=== PATIENT | male | born 1965 | race Caucasian/White ===

== ENCOUNTER 2024-03-06 05:40 | Emergency (ER) | payer OTHER ==
[2024-03-06 06:00] VITALS: TEMP 97.6
--- NOTE | 2024-03-06 06:30 | ERPHSYRPT ---
- History of Present Illness Time Seen by Provider: 03/06/24 06:23 Source: patient Exam Limitations: no limitations Patient Subjective Stated Complaint: spontaneous R nare nose bleed that started around 0430 while patient was getting ready for work, pt states he had 2 nose bleeds yesterday that stopped on their own, 1st nose bleed yesterday was after sneezing, 2nd nosebleed was also spontaneous Triage Nursing Assessment: pt ambulatory to bed by self, at bedside, pt alert and oriented x3, skin pwd, pt c/o R sided nose bleed that spontaneously bleeding around 0430 while patient was getting ready for work, pt denies any pain, pt denies bloodthinners, pt takes low dose aspirin daily, R nare bleeding steadily upon arrival Physician History: 58-year-old male presents to emergency department for evaluation of nosebleed. Patient states bleeding started yesterday. Patient states he sneezed and the right nare began to bleed. It spontaneously stopped. Bleeding reoccurred a second time yesterday. Patient states he started to bleed spontaneously without any obvious cause. That second bleed eventually stopped. Patient states he bled again from the right nare this morning as he was getting ready for work. No triggering factors. Patient denies a history of nosebleeds. No obvious easy bruising. No ecchymosis on the skin. He denies trauma. Patient is not on blood thinners. However he does take a baby aspirin. Patient otherwise feels well. He denies pain. No chest pain or shortness of breath. No nausea vomiting or diaphoresis. at bedside. They voiced no other complaints or concerns at this time. Portions of this note were created with voice recognition technology. There may be grammatical, spelling, punctuation or sound alike errors Timing/Duration: yesterday Severity: moderate Modifying Factors: Improves With: nothing Associated Symptoms: denies symptoms Allergies/Adverse Reactions: No Known Drug Allergies Allergy (Verified 03/06/24 05:51) Home Medications: Aspirin 81 gm Chew [Baby Aspirin 81 mg Chew] 1 tab PO DAILY 03/06/24 [History] Atorvastatin Calcium 1 tab PO DAILY 03/06/24 [History] Cholecalciferol (Vitamin D3) [Vitamin D3] 50 mcg PO DAILY 03/06/24 [History] Fenofibrate 160 mg PO DAILY 03/06/24 [History] Meloxicam 2 tab PO DAILY 03/06/24 [History] Multivitamin 1 tab PO DAILY 03/06/24 [History] Phenytoin Sodium Extended [Dilantin] 2 tab PO DAILY 03/06/24 [History] hydroCHLOROthiazide [Hydrochlorothiazide] 12.5 mg PO DAILY 03/06/24 [History] lisinopriL [Lisinopril] 1 tab PO DAILY 03/06/24 [History] Hx Tetanus, Diphtheria Vaccination/Date Given: No Hx Influenza Vaccination/Date Given: Yes Hx Pneumococcal Vaccination/Date Given: No Travel Risk - International Travel Have you traveled outside of the country in past 3 weeks: No - Emerging Infectious Disease Are you exhibiting symptoms associated with any current EIDs: No - Review of Systems Constitutional: No Symptoms, No Fever, No Chills Eyes: No Symptoms Ears, Nose, & Throat: No Symptoms Respiratory: No Symptoms, No Cough, No Dyspnea Cardiac: No Symptoms, No Chest Pain, No Edema, No Syncope Abdominal/Gastrointestinal: No Symptoms, No Abdominal Pain, No Nausea, No Vomiting, No Diarrhea Genitourinary Symptoms: No Symptoms, No Dysuria Musculoskeletal: No Symptoms, No Back Pain, No Neck Pain Skin: No Symptoms, No Rash Neurological: No Symptoms, No Dizziness, No Focal Weakness, No Sensory Changes Psychological: No Symptoms Endocrine: No Symptoms Hematologic/Lymphatic: No Symptoms Immunological/Allergic: No Symptoms All Other Systems: Reviewed and Negative - Past Medical History Pertinent Past Medical History: Yes Neurological History: Seizures ENT History: No Pertinent History Cardiac History: High Cholesterol, Hypertension Respiratory History: No Pertinent History Endocrine Medical History: No Pertinent History Musculoskeletal History: Fractures GI Medical History: No Pertinent History History: No Pertinent History Psycho-Social History: No Pertinent History Male Reproductive Disorders: No Pertinent History - Past Surgical History Past Surgical History: No Neuro Surgical History: No Pertinent History Cardiac: No Pertinent History Respiratory: No Pertinent History Gastrointestinal: No Pertinent History Genitourinary: No Pertinent History Musculoskeletal: No Pertinent History Male Surgical History: No Pertinent History - Social History Smoking Status: Never smoker Exposure to second hand smoke: No Drug Use: none - Social Determinants of Health Will the patient participate in the screening: Declined to provide - Nursing Vital Signs Nursing Vital Signs: Initial Vital Signs Temperature 97.6 F 03/06/24 05:51 Pulse Rate 111 H 03/06/24 05:51 Respiratory Rate 18 03/06/24 05:51 Blood Pressure 148/104 03/06/24 05:51 O2 Sat by Pulse Oximetry 96 03/06/24 05:51 Pain Scale Pain Intensity 0 - Physical Exam General Appearance: no apparent distress, alert Eye Exam: PERRL/EOMI, eyes nml inspection Ears, Nose, Throat Exam: normal ENT inspection, TMs normal, pharynx normal, moist mucous membranes Neck Exam: normal inspection, non-tender, supple, full range of motion Respiratory Exam: normal breath sounds, lungs clear, airway intact, No respiratory distress Cardiovascular Exam: regular rate/rhythm, normal heart sounds, normal peripheral pulses Gastrointestinal/Abdomen Exam: soft, normal bowel sounds, No tenderness, No mass Back Exam: normal inspection, normal range of motion, No CVA tenderness, No vertebral tenderness Extremity Exam: normal inspection, normal range of motion, pelvis stable Neurologic Exam: alert, oriented x 3, cooperative, normal mood/affect, nml cerebellar function, nml station & gait, sensation nml, No motor deficits Skin Exam: normal color, warm, dry, No rash Lymphatic Exam: No adenopathy SpO2 Interpretation: normal SpO2: 96 O2 Delivery: Room Air - Course Nursing assessment & vital signs reviewed: Yes Ordered Tests: Active Orders 24 hr Category Date Time Status IV Insertion STAT Care 03/06/24 06:33 Active CBC W DIFF Stat Lab 03/06/24 06:52 Completed CMP Stat Lab 03/06/24 06:52 Received PROTIME WITH INR Stat Lab 03/06/24 06:52 Received PTT Stat Lab 03/06/24 06:52 Received Medication Summary Generic Name Dose Route Start Last Admin Trade Name Freq PRN Reason Stop Dose Admin Sodium Chloride 1,000 mls @ 999 mls/hr 03/06/24 06:33 03/06/24 06:47 Sodium Chloride 0.9% 1000 Ml IV 03/06/24 07:33 999 mls/hr .[id number] STA Administration Discontinued Medications Generic Name Dose Route Start Last Admin Trade Name Freq PRN Reason Stop Dose Admin Sodium Chloride Confirm 03/06/24 06:45 Sodium Chloride 0.9% 1000 Ml Administered 03/06/24 06:46 Dose 1,000 mls @ ud .ROUTE .K-MED ONE Lab/Rad Data: Laboratory Result Diagrams 03/06/24 06:52 Laboratory Results 03/06/24 Range/Units 06:52 WBC 4.2 L (4.23-9.07) x10^3/uL RBC 4.09 L (4.63-6.08) x10^6/uL Hgb 12.2 L (13.7-17.5) g/dL Hct 36.1 L (40.1-51.0) % MCV 88.3 (79.0-92.2) fL MCH 29.8 (25.7-32.2) pg MCHC 33.8 (32.3-36.5) g/dL RDW 12.8 (11.6-14.4) % Plt Count 191 (163-337) x10^3/uL MPV 8.8 L (9.4-12.4) fL Gran % 67.5 (34.0-67.9) % Immature Gran % (Auto) 2.4 H (0.001-0.429) % Nucleat RBC Rel Count 0.0 (0.00-0.2) % Eos # (Auto) 0.15 (0.04-0.54) x10^3/uL Immature Gran # (Auto) 0.10 H (0.001-0.031) x10^3u/L Absolute Lymphs (auto) 0.69 L (1.32-3.57) x10^3/uL Absolute Monos (auto) 0.39 (0.30-0.82) x10^3/uL Absolute Nucleated RBC 0.00 (0.00-0.012) x10^3u/L Lymphocytes % 16.4 L (21.8-53.1) % Monocytes % 9.2 (5.3-12.2) % Eosinophils % 3.6 (0.8-7.0) % Basophils % 0.9 (0.2-1.2) % Absolute Granulocytes 2.85 (1.78-5.38) x10^3/uL Basophils # 0.04 (0.01-0.08) x10^3/uL - Progress Progress: improved Progress Note: 58-year-old male presents to our ED with epistaxis. Patient does not have a primary care doctor that he follows up with regularly. Upon arrival patient was tachycardic. Labs ordered to assess coagulation profile. IV fluids infusing secondary to tachycardia. Tachycardia likely secondary to blood loss. Laboratory pending. Patient is currently being observed. No active epistaxis at this time. It is currently the change of shift. Patient endorsed to [facility] physician who will follow-up with pending results and make and make final disposition. Incoming physician is Dr. Naik. Patient reassessed. He is resting comfortably. No active epistaxis. Portions of this note were created with voice recognition technology. There may be grammatical, spelling, punctuation or sound alike errors Complexity of problem addressed is moderate acute complicated. No critical care time. Complex of data reviewed and analyzed is moderate. Test ordered test reviewed results analyzed and correlated clinically with history and physical exam. Risk of complication and or risk of morbidity/mortality patient management is low. Vital stable. Time spent to discharge patient is approximately 15 minutes. Plan of care established for shared decision making. No social determinants of health present to impede follow-up. Portions of this note were created with voice recognition technology. There may be grammatical, spelling, punctuation or sound alike errors 03/06/24 06:55 Counseled pt/family regarding: lab results, diagnosis, need for follow-up - Departure Departure Disposition: Home Clinical Impression: Epistaxis, Tachycardia Condition: Stable Critical Care Time: No Referrals: DOCTOR,NO FAMILY [Primary Care Provider] - Follow up/PCP as directed AIYANA GALINDO MD [ACTIVE STAFF] - Follow up/PCP as directed Additional Instructions: Discharge/Care Plan BETHANY COBB was seen on 03/06/24 in the Emergency Room. The patient was counseled regarding Diagnosis,Lab results, Imaging studies, need for follow up and when to return to the Emergency Room. Prescriptions given: Discharge Note I have spoken with the patient and/or caregivers. I have explained the patient's condition, diagnosis and treatment plan based on the information available to me at this time. I have answered the patient's and/or caregiver's questions and add ressed any concerns. The patient and/or caregivers have as good understanding of the patient's diagnosis, condition and treatment plan as can be expected at this point. The vital signs have been stable. The patient's condition is stable and appropriate for discharge from the emergency department. The patient will pursue further outpatient evaluation with the primary care physician or other designated or consulting physician as outlined in the discharge instructions. The patient and/or caregivers are agreeable to this plan of care and follow-up instructions have been explained in detail. The patient and/or caregivers have received these instruction. The patient/and or caregivers are aware that any significant change in condition or worsening of symptoms should prompt an immediate return to this or the closest emergency department or call 911.
[2024-03-06] MEDS ORDERED: Sodium Chloride 0.9% 1000 ML 1,000 ML ONE (06:45)
[2024-03-06] MEDS: Sodium Chloride 0.9% 1000 ML 1,000 ML IV STA (06:47)
[2024-03-06 06:53] LABS: Absolute Neutrophil Ct (ANC) 2.85 x10^3/uL (1.78-5.38); BASOPHIL % 0.9 % (0.2-1.2); Basophil (Absolute #) 0.04 x10^3/uL (0.01-0.08); Eosinophil % 3.6 % (0.8-7.0); Eosinophil (Absolute #) 0.15 x10^3/uL (0.04-0.54); Hematocrit 36.1 % (40.1-51.0); Hemoglobin 12.2 g/dL (13.7-17.5); IMMATURE GRAN % 2.4 % (0.001-0.429); Lymphocyte (Absolute #) 0.69 x10^3/uL (1.32-3.57); Lymphocytes % 16.4 % (21.8-53.1); Mean Cell Volume 88.3 fL (79.0-92.2); Mean Corpuscular Hemoglobin 29.8 pg (25.7-32.2); Mean Corpuscular Hgb Concent. 33.8 g/dL (32.3-36.5); Mean Platelet Volume 8.8 fL (9.4-12.4); Monocyte (Absolute #) 0.39 x10^3/uL (0.30-0.82); Monocytes % 9.2 % (5.3-12.2); Neutrophil % 67.5 % (34.0-67.9); Platelet Count 191 x10^3/uL (163-337); Red Blood Count 4.09 x10^6/uL (4.63-6.08); Red Cell Distribution Width 12.8 % (11.6-14.4); White Blood Count 4.2 x10^3/uL (4.23-9.07)
[2024-03-06] MEDS ORDERED: NEOSYNEPHRINE 0.5% NASAL SPRAY/DROPS ONE (07:07)
[2024-03-06 07:08] LABS: ALBUMIN 4.1 g/dL (3.5-5.0); ANION GAP 14.6 MEQ/L (5-15); BILIRUBIN,TOTAL 0.2 mg/dL (0.2-1.3); Calcium 9.4 mg/dL (8.4-10.2); Creatinine 1 0.74 mg/dL (0.66-1.25); EST GLOMERULAR FILTRATION RATE 106.3 ML/MIN; Total Protein 6.5 g/dL (6.3-8.2)
[2024-03-06 07:09] LABS: INR 0.97 (0.8-3.0); PROTIME 10.6 SECONDS (9.4-12.5); PTT 25.9 SECONDS (25.1-36.5)
[2024-03-06] MEDS: NEOSYNEPHRINE 0.5% NASAL SPRAY/DROPS NS ONE (07:17)
[2024-03-06 07:54] VITALS: RESP 20
[2024-03-06] MEDS: NORCO 5/325 MG PO ONE (08:13)
[2024-03-06] MEDS ORDERED: NORCO 5/325 MG ONE (08:13)
[2024-03-06 08:15] VITALS: BP 136/97; PULSE 107; O2SAT 93
== END 2024-03-06 08:32 | disposition home or self-care (01) ==
LOC: ED 05:40
DX: R04.0 Epistaxis (principal); R00.0 Tachycardia, unspecified; E78.5 Hyperlipidemia, unspecified; I10 Essential (primary) hypertension; Z79.899 Other long term (current) drug therapy
CPT/HCPCS: 30901; 36000; 36415; 80053; 85025; 85610; 85730; 96360; 99284; A9270-GY